=== PATIENT | male | born 1960 | race Caucasian/White ===

== ENCOUNTER 2017-07-22 09:34 | Emergency (ER) | payer BC, MEDICAID | END 2017-07-22 11:55 | disposition home or self-care (01) | LOC: FTE 09:34 | DX: R05 Cough (principal); R07.9 Chest pain, unspecified | CPT/HCPCS: 71045; 93005; 99284-25 ==

== ENCOUNTER 2018-04-05 10:41 | Emergency (ER) | payer SELFPAY, BC | END 2018-04-05 12:34 | disposition home or self-care (01) | LOC: FTE 10:41 | DX: E11.65 Type 2 diabetes mellitus with hyperglycemia (principal); N48.1 Balanitis | CPT/HCPCS: 82962; 99283 ==